=== PATIENT | male | born 1975 | race Two or more races ===

== ENCOUNTER 2022-11-22 21:46 | Emergency (ER) | payer MEDICAID ==
[~2022-11-22] VITALS: Ht 185.4 cm; Wt 109.0 kg
[~2022-11-22 21:46] MED LIST: CEFU500T41 MT
[2022-11-22 22:34] VITALS: BP 157/103; PULSE 91; TEMP 98.7; O2SAT 98
[2022-11-23 01:30] LABS: BASOPHILS % 0.8 % (0.0-2.0); EOSINOPHILS % 1.5 % (0.0-5.0); HEMATOCRIT. 46.9 % (42.0-52.0); HEMOGLOBIN. 15.5 g/dL (14.0-18.0); LYMPHOCYTES % 32.3 % (20.0-50.0); MEAN CORPUSCULAR HEMOGLOBIN 26.8 pg (28.0-32.0); MEAN CORPUSCULAR VOLUME 81.1 fL (80.0-94.0); MEAN PLATELET VOLUME 8.2 fl (7.4-10.4); MONOCYTES % 11.3 % (2.0-8.0); NEUTROPHILS % 54.1 % (40.0-76.0); PLATELET 209 x1000/uL (130-400); RED BLOOD CELL COUNT 5.79 mill/uL (4.7-6.1); RED CELL DISTRIBUTION WIDTH 17.8 % (11.6-14.6)
[2022-11-23 01:36] LABS: CHLORIDE 107 mEq/L (98-107)
[2022-11-23 06:16] LABS: CLARITY URINE CLEAR (CLEAR); COLOR URINE YELLOW (YELLOW); KETONES URINE NEGATIVE (NEGATIVE); LEUKOCYTE ESTERASE URINE 2+ (NEGATIVE); NITRITE URINE NEGATIVE (NEGATIVE); OCCULT BLOOD URINE TRACE (NEGATIVE); PH URINE 5.5 (4.5-8.0); PROTEIN URINE NEGATIVE (NEGATIVE); SPECIFIC GRAVITY URINE 1.021 (1.005-1.030)
[2022-11-23] MEDS ORDERED: ONDA4TAB50 PO (08:22)
[2022-11-23] MEDS ORDERED: TOPUD PO (08:22)
== END 2022-11-23 08:37 | disposition home or self-care (01) ==
LOC: ER 21:46
DX: R10.9 Unspecified abdominal pain (principal); F12.10 Cannabis abuse, uncomplicated
CPT/HCPCS: 36415; 71045; 74176; 76705; 80053; 81003; 85025; 99285